=== PATIENT | male | born 1965 | race Caucasian/White ===

== ENCOUNTER 2016-07-30 07:34 | Emergency (ER) | payer OTHER ==
--- NOTE | ~2016-07-30 | CR63 ---
[facility] A Service of [facility] & [facility] RADIOLOGY TEXT RESULTS PATIENT: SELVIN YUSUF LOCATION: [facility] : 65 UNIT #: [id number] AGE: [address]: Sara Ellington SEX: M ORDER DR: [id number] [facility] [address] [facility]. [place], [place] [address] [id number] E MR#: [id number] Acc #: [id number] NAME: SELVIN YUSUF : 1965 SEX: M STUDY DATE/TIME: 07/30/2016 8:34 UNIT: [facility] ROOM: STUDY DESCRIPTION: CR Chest 2 View Attending Physician: Sara Ellington P.A.-C. Ordering Physician: Sara Ellington P.A.-C. Primary Care Physician: No Primary Care Physician MEDICAL IMAGING REPORT This report is preliminary unless electronic signature is present EXAM PA and lateral chest. INDICATIONS Shortness of breath this morning. COMPARISON No comparisons. FINDINGS The lungs are well expanded and clear. The heart size is normal. The visualized osseous structures are unremarkable. IMPRESSION Negative chest. Dictated by... Clayton De La Paz M.D. THIS IS AN ELECTRONICALLY VERIFIED REPORT Clayton De La Paz M.D. at 07/30/2016 3:22 PM SHANNON/tamera TD: 07/30/2016 12:38 JOB #: [id number] MEDICAL IMAGING REPORT Page 1 of 1 COPY
--- NOTE | ~2016-07-30 | EKG ---
PATIENT: SELVIN YUSUF UNIT #: [id number] Ventricular Rate: 79 BPM Atrial Rate: 79 BPM P-R Interval: 164 ms QRS Duration: 90 ms Q-T Interval: 384 ms QTC Calculation(Bezet): 440 ms P Haddock: 61 degrees Calculated R Haddock: 39 degrees Calculated T Haddock: 51 degrees Diagnosis Line: Normal sinus rhythm with sinus arrhythmia Diagnosis Line: Normal ECG Diagnosis Line: No previous ECGs available Diagnosis Line: Confirmed by ELSA DAMON MD ([id number]) on Diagnosis Line: 07/31/2016 6:40:05 AM INTERPRETING MD: LEIGH
--- NOTE | ~2016-07-30 | CT71 ---
[facility] A Service of [facility] RADIOLOGY TEXT RESULTS PATIENT: SELVIN YUSUF LOCATION: [facility] : 65 UNIT #: [id number] AGE: [address]: Sara Ellington SEX: M ORDER DR: [id number] [address] [address] [id number] E MR#: [id number] Acc #: [id number] NAME: SELVIN YUSUF : 1965 SEX: M STUDY DATE/TIME: 07/30/2016 9:09 UNIT: [facility] ROOM: STUDY DESCRIPTION: CT Head Wo Contrast Attending Physician: Sara Ellington P.A.-C. Ordering Physician: Sara Ellington P.A.-C. Primary Care Physician: No Primary Care Physician MEDICAL IMAGING REPORT This report is preliminary unless electronic signature is present EXAM Head CT without contrast, 07/30/2016 COMPARISON None HISTORY Near syncope today. PROCEDURE Routine unenhanced head CT. TECHNIQUE This CT exam was performed with one or more of the following radiation dose reduction techniques: automatic exposure control, adjustment of mA and/or kV according to patient size, and iterative reconstruction. This CT exam was performed with one or more of the following radiation dose reduction techniques: automatic exposure control, adjustment of mA and/or kV according to patient size, and iterative reconstruction. FINDINGS There is no intracranial hemorrhage or mass. There is no hydrocephalus or extraaxial fluid collection. Brain parenchymal density is normal. The extracranial soft tissues are normal. IMPRESSION Normal negative unenhanced head CT. Dictated by... Tylor Betts M.D. [facility] A Service of [facility] RADIOLOGY TEXT RESULTS PATIENT: SELVIN YUSUF LOCATION: [facility] : 65 UNIT #: [id number] AGE: [address]: Sara Ellington SEX: M ORDER DR: THIS IS AN ELECTRONICALLY VERIFIED REPORT Tylor Betts M.D. at 07/30/2016 4:26 PM TEV/robinson TD: 07/30/2016 12:33 JOB #: [id number] MEDICAL IMAGING REPORT Page 1 of 1 COPY
[2016-07-30 08:57] LABS: BASOPHIL% 0.4 % (0-2.5); EOSINOPHIL% 0.3 % (0.0-7.0); HEMOGLOBIN 15.7 gm/dL (13.0-16.0); LYMPHOCYTE# 0.6 X10e3 (1.0-3.5); MEAN CORPUSCULAR HEMOGLOBIN 34.8 PG (28-34); MEAN CORPUSCULAR HGB CONC 33.4 g/dL (30-36); MEAN PLATELET VOLUME 8.5 FL (6.5-11.5); MONOCYTE# 0.7 X10e3 (0-1.0); MONOCYTE% 11.3 % (3.0-12.0); NEUTROPHIL# 4.7 X10e3 (1.5-7.1); PLATELET COUNT 163 X10e3 (140-420); RED BLOOD COUNT 4.52 X10e (3.90-5.60); RED CELL DISTRIBUTION WIDTH 13.4 % (11.0-15.5)
[2016-07-30 09:04] LABS: DIFF IND NO
[2016-07-30 09:24] LABS: BUN/CREATININE RATIO 11.25; CALCIUM SERUM 9.2 mg/dL (8.4-10.2); CREATININE SERUM 0.8 mg/dL (0.6-1.4); GLOM FILT RATE Estimated 103.5 mL/min (>60); POTASSIUM 4.8 mmol/L (3.5-5.1)
[2016-07-30 10:28] LABS: ALBUMIN SERUM 4.2 g/dL (3.5-5.0); BILIRUBIN, DIRECT 0.2 mg/dL (0.0-0.2); BILIRUBIN,INDIRECT 1.3 mg/dL (0.0-0.9); BILIRUBIN,TOTAL 1.5 mg/dL (0.2-2.0); PROTEIN TOTAL SERUM 6.7 g/dL (6.0-8.3)
== END 2016-07-30 12:14 | disposition home or self-care (01) ==
LOC: CED 07:34
PROVIDERS: Physician Assistant
DX: R42 Dizziness and giddiness (principal); R03.0 Elevated blood-pressure reading, without diagnosis of hypertension; F17.210 Nicotine dependence, cigarettes, uncomplicated
CPT/HCPCS: 36415; 70450; 71020; 80048; 80076; 82947; 85025; 93005; 99285; J1200; J2405

== ENCOUNTER 2016-08-18 17:00 | Inpatient (IN) | payer OTHER ==
--- NOTE | ~2016-08-18 | DS ---
Unit #: [id number] #: [id number] Patient: SELVIN YUSUF [id number] [facility] [address] [place] [address] [id number] I MR#: [id number] NAME: SELVIN YUSUF ROOM: [facility] Age: 51 Sex: M Admission Date: 08/18/2016 : 1965 Discharge Date: 08/20/2016 Attending Physician: Camilo Liriano M.D. Primary Care Physician: No Primary Care Physician DISCHARGE SUMMARY REASON FOR ADMISSION Selvin is a 51-year-old man who came in reporting multiple psychosocial stressors caused by his chronic alcohol use. He had suicidal ideation with plan to shoot himself and was admitted for stabilization. LABORATORY Please see hospital chart. HOSPITAL COURSE Patient was admitted and placed on suicide precautions on the alcohol detox protocol. Celexa 20 mg daily was initiated for treatment of depression. He was provided with some dermatological treatments on a p.r.n. basis. He had an uneventful period of detox with no seizures, hallucinations, or adverse sequelae and denied suicidal ideation after admission. He was discharged in stable condition to follow up with evening CD IOP in his primary care physician. DISCHARGE DIAGNOSIS AXIS I: Major depression, alcohol dependence. AXIS II: No diagnosis. AXIS III: None. INSTRUCTIONS I instructed the patient follow up with evening CD IOP and primary care physician. DISCHARGE MEDICATIONS Celexa 20 mg daily for depression. CONDITION ON DISCHARGE Improved. PROGNOSIS Good. DIET AND ACTIVITY Ad bradley. Dictated by... Camilo Liriano M.D. MRH/gz Unit #: [id number] #: [id number] Patient: SELVIN YUSUF TD: 09/23/2016 08:00 JOB #: [id number] DISCHARGE SUMMARY Page 1 of 1 X Camilo Liriano MD X DISCHARGE SUMMARY
--- NOTE | ~2016-08-18 | HP ---
Unit #: [id number] #: [id number] Patient: SELVIN YUSUF [id number] [place] [address] [id number] I MR#: [id number] NAME: SELVIN YUSUF ROOM: [facility] Age: 51 Sex: M Admission Date: 08/18/2016 : 1965 Attending Physician: Camilo Liriano M.D. Admitting Physician: Camilo Liriano M.D. Primary Care Physician: Primary Care Physician No HISTORY AND PHYSICAL HISTORY OF PRESENT ILLNESS Selvin is a 51 year old admitted to [facility] because of his abuse of alcohol. He is detoxing. PAST MEDICAL HISTORY 1. History of alcohol abuse. 2. History of withdrawal seizures. PAST SURGICAL HISTORY Nothing reported. ALLERGIES No known drug allergies. SOCIAL HISTORY Smokes two packs per day. Drinks at least up to 2 cases of beer on a daily basis. Admits to abusing benzodiazepines. FAMILY HISTORY Medically noncontributory. REVIEW OF SYSTEMS CONSTITUTIONAL: No fever or chills. HEENT: Denies any sore throat, ear pain or runny nose. CARDIOVASCULAR: Denies chest pain, irregular heart rhythm or palpitations. CHEST: Denies shortness of breath or cough. No hemoptysis. GASTROINTESTINAL: Denies nausea, vomiting, diarrhea or chronic constipation. ENDOCRINE: Denies history of increased thirst or urination. No recent significant weight loss or gain. GENITOURINARY: Denies dysuria, frequency, or hematuria. SKIN: Denies any rashes. HEMATOLOGIC: Denies history of increased bleeding or bruising. MUSCULOSKELETAL: Denies any hot, swollen joints. No generalized muscle pain. NEUROLOGIC: Denies problems with vision or speech. No frequent, severe headaches. No numbness, tingling or weakness in any extremities. Denies loss of bladder or bowel control. CURRENT MEDICATIONS 1. Detox protocol. 2. Celexa 20 mg q day Unit #: [id number] #: [id number] Patient: SELVIN YUSUF 3. Multivitamin 1 day 4. Nicotine patch 14 mg q day PHYSICAL EXAMINATION GENERAL: Alert, well-nourished, in no apparent distress. VITAL SIGNS: Blood pressure 126/82, heart rate 80, respirations 16, temperature 98.6. WEIGHT: 137 pounds. HEIGHT: 5'8". SKIN: Warm and dry without rash or lesion. HEENT: Normocephalic. TMs not viewed. Oral and nasal passages clear. Conjunctivae clear. Pupils equal, round and reactive to light and accommodation. Extraocular movements intact. NECK: Supple without lymphadenopathy or thyromegaly. HEART: Regular rate and rhythm without murmur. LUNGS: Clear. ABDOMEN: Soft, nontender. : Not done. EXTREMITIES: No evidence of cyanosis, clubbing or edema. Moves all extremities without focal deficit. NEUROLOGICAL: Grossly within normal limits. Cranial Nerves: II: Visual martel are intact. III, IV AND : Extraocular movements are intact. Pupils are equal, round and reactive to light. V: Facial sensation is grossly normal. VII: Facial movements and expression are normal. VIII: Auditory acuity grossly intact. IX, X: Uvula is midline. Phonation is normal. XI: Patient shrugs shoulders and turns head normally. XII: Tongue protrudes in the midline. Sensory and Motor Function: Sensory and motor sensation is grossly normal. Motor: moves all extremities well. Coordination: Gait is normal. Deep Tendon Reflexes: Intact. IMPRESSION Psychiatric admission RECOMMENDATIONS PSYCHIATRIC: Per psychiatrist. MEDICAL: I see no contraindications to participating in facility's activities. MEDICAL PROGNOSIS Good. MEDICAL CONDITION Stable. Dictated by... Kathy Mae PBryceABryce-Julio Cesar. for Caio Hall/whit TD: 08/19/2016 22:50 Unit #: [id number] #: [id number] Patient: SELVIN YUSUF JOB #: [id number] HISTORY AND PHYSICAL Page 1 of 1 X Kathy Mae X HISTORY AND PHYSICAL
[2016-08-19 09:45] LABS: BASOPHIL% 0.4 % (0-2.5); EOSINOPHIL# 0.1 X10e3 (0-0.7); EOSINOPHIL% 1.4 % (0.0-7.0); HEMATOCRIT 43.9 % (38.0-50.0); HEMOGLOBIN 14.9 gm/dL (13.0-16.0); LYMPHOCYTE# 1.1 X10e3 (1.0-3.5); LYMPHOCYTE% 18.2 % (17.0-45.0); MEAN CELL VOLUME 103.6 FL (83-96); MEAN CORPUSCULAR HEMOGLOBIN 35.2 PG (28-34); MEAN PLATELET VOLUME 8.5 FL (6.5-11.5); MONOCYTE# 0.8 X10e3 (0-1.0); MONOCYTE% 13.9 % (3.0-12.0); NEUTROPHIL# 3.9 X10e3 (1.5-7.1); NEUTROPHIL% 66.1 % (40-75); PLATELET COUNT 206 X10e3 (140-420); RED BLOOD COUNT 4.23 X10e (3.90-5.60); RED CELL DISTRIBUTION WIDTH 13.5 % (11.0-15.5); WHITE BLOOD COUNT 5.9 X10e3 (4.0-10.5)
[2016-08-19 09:59] LABS: DIFF IND NO
[2016-08-19 10:35] LABS: ALBUMIN SERUM 3.7 g/dL (3.5-5.0); BILIRUBIN,TOTAL 1.2 mg/dL (0.2-2.0); BUN/CREATININE RATIO 13.75; CALCIUM SERUM 9.1 mg/dL (8.4-10.2); CREATININE SERUM 0.8 mg/dL (0.6-1.4); GLOM FILT RATE Estimated 103.5 mL/min (>60); POTASSIUM 4.7 mmol/L (3.5-5.1); PROTEIN TOTAL SERUM 6.1 g/dL (6.0-8.3)
[2016-08-20 12:51] LABS: AMPHETAMINE NEG (NEG); BARBITURATES NEG (NEG); BENZODIAZEPINES POS (NEG); COCAINE NEG (NEG); MARIJUANA POS (NEG); OPIATES NEG (NEG); TRICYCLIC ANTIDEPRESSANTS NEG (NEG); U METHADONE NEG (NEG)
== END 2016-08-20 11:38 | DRG 897 ==
LOC: P1E 19:45
PROVIDERS: Psychiatry & Neurology Psychiatry
PROC: HZ2ZZZZ Detoxification Services for Substance Abuse Treatment (ICD-10-PCS; principal; 2016-08-18)
DX: F10.20 Alcohol dependence, uncomplicated (principal); R45.851 Suicidal ideations; F13.10 Sedative, hypnotic or anxiolytic abuse, uncomplicated; F17.210 Nicotine dependence, cigarettes, uncomplicated; F32.9 Major depressive disorder, single episode, unspecified; Z56.0 Unemployment, unspecified; R45.850 Homicidal ideations
CPT/HCPCS: 80053; 80307; 82947; 85025